=== PATIENT | male | born 1970 | race Caucasian/White ===

== ENCOUNTER 2017-07-21 09:45 | Emergency (ER) | payer OTHER ==
[~2017-07-21] VITALS: Ht 182.9 cm; Wt 111.1 kg
[2017-07-21 09:47] VITALS: BP 158/111
--- NOTE | 2017-07-21 09:55 | NUR ---
PT AMBULATED TO [facility]
--- NOTE | 2017-07-21 10:22 | NUR ---
47/M presents to ED with complaints of right foot pain x1 week starting last Friday. Pt c/o pain to right lateral foot. Denies injury, fall or trauma. Pt states the pain was sudden. Pt states he walks all day during work; walking on gravel but denies any injury. Swelling noted to the foot, CMS intact. Pt states "I'm walking on my heel because I can't bear any weight to the top of my foot." Pt observed ambulating with steady gait. AOX4, VSS. with patient. No distress noted.
--- NOTE | 2017-07-21 10:24 | NUR ---
PT RETURNED FROM XRAY
--- NOTE | 2017-07-21 10:25 | NUR ---
Pt returned from x-ray and placed in chair A.
[2017-07-21 11:03] VITALS: BP 158/111
--- NOTE | 2017-07-21 11:03 | NUR ---
Patient discharged with v/s stable. Written and verbal after care instructions given and explained. Patient verbalized understanding. Pt wheel chair assisted to car by EMT Brian. All questions addressed prior to discharge. Advised to follow up with PMD.
== END 2017-07-21 11:03 | disposition home or self-care (01) ==
LOC: MED 09:45
DX: S92.351A Displaced fracture of fifth metatarsal bone, right foot, initial encounter for closed fracture (principal); X58.XXXA Exposure to other specified factors, initial encounter; Y93.01 Activity, walking, marching and hiking; Y92.89 Other specified places as the place of occurrence of the external cause; Y99.8 Other external cause status; I10 Essential (primary) hypertension
CPT/HCPCS: 29515; 73630; 99284

== ENCOUNTER 2021-03-14 07:49 | Emergency (ER) | payer SELFPAY ==
[~2021-03-14] VITALS: Ht 182.9 cm; Wt 112.5 kg
[2021-03-14 07:51] VITALS: BP 133/111
--- NOTE | 2021-03-14 08:05 | NUR ---
PT C/O LOUD NOISE IN ER AND STORMED OUT STATING "I CANT BE HERE"
--- NOTE | 2021-03-14 08:06 | NUR ---
PATIENT LEFT WITHOUT BEING SEEN BY DR. PELLETIER. NO FURTHER CARE PROVIDED FOR PATIENT.
== END 2021-03-14 08:06 | disposition left against medical advice (07) ==
LOC: MED 07:49
DX: H92.02 Otalgia, left ear (principal); Z53.21 Procedure and treatment not carried out due to patient leaving prior to being seen by health care provider

== ENCOUNTER 2021-06-04 10:28 | Emergency (ER) | payer OTHER ==
[~2021-06-04] VITALS: Ht 177.8 cm; Wt 110.7 kg
[2021-06-04 10:50] VITALS: BP 158/94
--- NOTE | 2021-06-04 11:30 | NUR ---
51/M BIB SELF WITH C/O BILATERAL EAR PAIN. STATES HE WAS RECENTLY EXPOSED TO A LOUD NOISE AT WORK AND STATES SINCE HAS HAD A RINGING NOISE AND INCREASINGLY WORSE PAIN. DENIES DRAINAGE, DENIES INJURY TO EARS.
[2021-06-04] MEDS ORDERED: NAPR-54 PO (11:49)
[2021-06-04] MEDS ORDERED: MECL-303 PO (11:49)
[2021-06-04] MEDS ORDERED: LISI-487 PO (11:49)
[2021-06-04] MEDS ORDERED: CIPR7.5S OT (11:49)
[2021-06-04 12:45] VITALS: BP 158/94
--- NOTE | 2021-06-04 12:45 | NUR ---
Patient discharged with v/s stable. Written and verbal after care instructions ABOUT EUSTACHIAN TUBE DYSFUNCTION given and explained. Patient alert, oriented and verbalized understanding of instructions. Ambulatory with steady gait. All questions addressed prior to discharge. ID band removed. Patient advised to follow up with PMD. Rx of CIPRODEX, LISINOPRIL, ANTIVERT AND NAPROSYN given. Patient educated on indication of medication including possible reaction and side effects. Opportunity to ask questions provided and answered.
== END 2021-06-04 12:45 | disposition home or self-care (01) ==
LOC: MED 10:28
DX: H61.22 Impacted cerumen, left ear (principal); R42 Dizziness and giddiness; I10 Essential (primary) hypertension; Z76.0 Encounter for issue of repeat prescription; Z79.899 Other long term (current) drug therapy
CPT/HCPCS: 99283